=== PATIENT | female | born 1955 | race Caucasian/White ===

== ENCOUNTER → 2017-11-24 | Emergency (ER) | payer BC ==
[~2017-11-24] VITALS: Ht 160 cm; Wt 102.5 kg
[~2017-11-24] MED LIST: ADVIL,NUPRIN,M200 MG PO; ALLEGRA ALLERG180 MG PO; ASPIRIN EC325 MG PO; BACTRIM,SEPTRA S1 ML PO; BACTROBAN NASAL1 G1 BOTH NARES; CELEBREX200 MG PO; CLARITIN10 MG PO; CLARITIN5 MG/5 ML PO; CORAL CALCIUM390 MG PO; ENDOCET 5-3251 EACH PO; FISH OIL 1,0001 EAC7 PO; FLONASE16 G1 BOTH NARES; HYDROCHLOROTHIA25 MG PO; IRON325 M1 PO; KETOROLAC TROME10 MG PO; LEVOTHYROXINE50 MCG PO; Levothroid,Synthroid PO; MIRALAX17 GM PO; ONE-A-DAY ESSE1 EAC1 PO; PERCOCET 5/31 TABLET PO; PROTONIX20 MG PO; PROTONIX40 MG PO; Percocet 5/325,Endoc PO; SINGULAIR10 MG PO; STOOL SOFTENER100 M1 PO; Tamiflu PO; ULTRAM50 MG PO; VICODIN,LORT1 TABLET PO; VITAMIN D250000 UNIT PO; ZANAFLEX4 MG PO; ZOLOFT100 MG PO; ZOLOFT20 MG/ML PO
[2017-11-24 20:51] LABS: HEMATOCRIT 41.4 % (36.0-46.0); HEMOGLOBIN 13.8 G/DL (11.9-15.5); MCH 28.6 PG (29.0-34.0); MCHC 33.3 G/DL (30.0-36.0); MCV 85.9 FL (83-99); PLATELET COUNT 202 K/uL (156-360); RBC DIS.WIDTH-CV 13.3 % (11.8-14.6); RBC DIS.WIDTH-SD 41.9 % (39-53); RED BLOOD COUNT 4.82 M/uL (3.80-5.20); WHITE BLOOD COUNT 7.7 K/uL (4.1-10.2)
[2017-11-24 21:01] LABS: CHLORIDE 103 mEq/L (99-109); POTASSIUM 3.6 mEq/L (3.7-5.4); SODIUM 139 mEq/L (136-147)
[2017-11-24 21:03] LABS: GLUCOSE 128 mg/dL (70-99)
[2017-11-24 21:07] LABS: CREATININE 0.8 mg/dL (0.6-1.3); GFR ESTIMATE (CALCULATED) > 59 mL/min/
[2017-11-24 21:08] LABS: UREA NITROGEN (BUN) 29 mg/dL (9-23)
[2017-11-24 23:46] LABS: APPEARANCE CLEAR ((CLEAR)); BILIRUBIN NEGATIVE; BLOOD NEGATIVE; COLOR YELLOW ((YELLOW)); GLUCOSE (STRIP) NEGATIVE; KETONES NEGATIVE; LEUKOCYTES NEGATIVE; NITRITE NEGATIVE; PROTEIN (STRIP) NEGATIVE; SPECIFIC GRAVITY 1.014 (1.000-1.030); UCUL ADDED? NO; UROBILINOGEN 0.2 MG/DL (0.2-1.0)
[2017-11-25 00:54] VITALS: BP 127/70
== END | disposition home or self-care (01) ==
LOC: EME 20:25
PROVIDERS: Physician Assistant
DX: B34.9 Viral infection, unspecified (principal); R35.0 Frequency of micturition; E03.9 Hypothyroidism, unspecified; J30.9 Allergic rhinitis, unspecified
CPT/HCPCS: 71046; 80048; 81003; 85027; 87502; 99281; 99284

== ENCOUNTER 2018-02-19 12:29 | Emergency (ER) | payer OTHER, BC ==
[~2018-02-19] VITALS: Ht 170.2 cm; Wt 97.0 kg
[2018-02-19] MEDS ORDERED: PERCOCET 5/31 TABLET PO (14:08)
[2018-02-19 14:33] VITALS: BP 129/63
== END 2018-02-19 14:34 | disposition home or self-care (01) ==
LOC: EME 12:29
DX: S20.229A Contusion of unspecified back wall of thorax, initial encounter (principal); M51.36 Other intervertebral disc degeneration, lumbar region; W19.XXXA Unspecified fall, initial encounter; X50.0XXA Overexertion from strenuous movement or load, initial encounter; Y93.89 Activity, other specified
CPT/HCPCS: 72100; 99281; 99284; J1885